=== PATIENT | male | born 1995 | race Caucasian/White ===

== ENCOUNTER → 2017-02-01 | Day surgery (SDC) | payer OTHER ==
[~2017-02-01] VITALS: Ht 185.4 cm; Wt 72.6 kg
[~2017-02-01] MED LIST: ACETAMINOPHEN 1000 MG/100 ML VIAL IV ONE; ACETAMINOPHEN 325MG/HYDROcodone 7.5MG/15ML UDC ONE; ACETAMINOPHEN 325MG/HYDROcodone 7.5MG/15ML UDC PO PRN; AMPICILLIN-SULBACTAM INJ 3 GM VIAL ONE; DO NOT ADM ANY ANTICOAGULANT DRUGS XX PRN; HYDR1SOL3 PO; LACTATED RINGER'S 1000 ML INJ 1,000 ML IV ONE; LACTATED RINGER'S 1000 ML INJ 1,000 ML IV SCH; LIDOCAINE 1%/EPINEPHrine 1:100,000 SOLN 20 ML VIAL ONE; MICROFIBRILLAR COLLAGEN HEMOSTAT 1 GM PKT ONE; NEOSTIGMINE 3 MG/3 ML SYR IV ONE; ONDANSETRON HCL 4 MG/2 ML VIAL IV PUSH ONE; OXYMETAZOLINE HCL 0.05% 15 ML NASAL SPRAY ONE; PROPOFOL 200 MG/20 ML AMP IV ONE; SODIUM CHLORIDE 0.9% INJ 100 ML ONE; VENTAER INH; [UNRECOGNIZED DRUG - CODE] PO; fentaNYL CITRATE 250 MCG/5 ML AMP ONE
[2017-02-01 11:47] VITALS: BP 132/77; PULSE 85; RESP 16; TEMP 98.4; O2SAT 99
[2017-02-01 16:55] VITALS: BP 139/75; PULSE 81; RESP 16; TEMP 97.8; O2SAT 99
--- NOTE | 2017-02-08 08:01 | MP ---
cc: ONOFRE KAUR M.D. DATE OF SURGERY: 02/01/[address] Onofre Kaur PREOPERATIVE DIAGNOSIS 1. Adenotonsillar hypertrophy. 2. Nasal airway obstruction. 3. Nasal septal deviation. 4. Hypertrophy of inferior turbinates. POSTOPERATIVE DIAGNOSIS 1. Adenotonsillar hypertrophy. 2. Nasal airway obstruction. 3. Nasal septal deviation. 4. Hypertrophy of inferior turbinates. OPERATION PERFORMED 1. Open repair nasal septal fracture. 2. Bilateral submucosal resection of inferior turbinates. 3. Adenotonsillectomy. INDICATIONS The indications are documented in the history and physical. DESCRIPTION OF OPERATION The patient was taken to OR #6 and placed in the supine position. Following induction of general anesthesia and intubation the nose was packed bilaterally with cotton pledgets saturated in 0.05% oxymetazoline. Nasal septal mucosa and the inferior turbinates were injected with a total of 10 mL of 1% Xylocaine with epinephrine 1:100,000. The patient was then prepped and draped for surgery. Nasal packing was removed and a hemitransfixion incision was made in the left nasal vestibule and the septal mucosa was elevated bilaterally as far as the junction of the bony cartilaginous septum. This revealed the quadrangular cartilage which showed evidence of very thick twisted and irregular cartilage and evidence of old septal fracture with numerous angulated cartilage fragments. A cumulative area of 2 x 2.5 cm of cartilage was removed preserving 1.5 cm dorsal and caudal cartilaginous struts. This was removed in a piecemeal fashion using a Milam elevator and Yohannes-Mckenzie forceps. When this was completed the mucosa was elevated from the bony septum and the bony septum was removed with [place]-Mckenzie forceps and [place]-Jones septal scissors. Following this the maxillary crest was removed using a 6 mm Ringling chisel. The incision was then closed using a running suture of 4-0 chromic and the mucosal layers of septum were approximated to each other with a quilting stitch of 4-0 plain gut. The inferior turbinates were then fractured out medially and stab incisions were made along their inferior surfaces. Through these incisions the submucosal soft tissue was reduced using a curet preserving the conchal bone. The incisions were then cauterized using the suction Bovie at 35 pichardo. The remnants of the inferior turbinates were then re-lateralized to the lateral nasal wall. The nose was packed with Merocel tampons coated in bacitracin ointment. The table was then turned 90 degrees and a shoulder roll and McIvor mouth gag were put in place. The tonsils were then removed using the ArthroCare Coblator technique. Numerous sites of venous bleeding at the inferior and superior poles of tonsil fossa bilaterally were cauterized with the bipolar cautery until hemostasis was complete. Next, the adenoids were removed using the suction Bovie at 35 pichardo. The stomach was aspirated of several cc's of cloudy gastric contents using a #18 Kerr sump NG tube. When this was completed the mouth gag was removed and the procedure was terminated. The patient was reversed from anesthesia and taken to Recovery in good condition. There were no complications. Blood loss was 100 mL. MD FABIO Marquez/JULIETH /11:22 AM /7:52 AM
== END | disposition home or self-care (01) ==
LOC: HSDC 10:36
PROVIDERS: ATTEND Otolaryngology
DX: J35.01 Chronic tonsillitis (principal); J35.3 Hypertrophy of tonsils with hypertrophy of adenoids; J34.89 Other specified disorders of nose and nasal sinuses; J34.2 Deviated nasal septum; J34.3 Hypertrophy of nasal turbinates
CPT/HCPCS: 00160; 00170; 21335; 42821; 88304; J0131; J0295; J2405; J2710; J3010; J7120

== ENCOUNTER 2017-02-02 01:14 | Emergency (ER) | payer OTHER ==
[2017-02-02 01:17] VITALS: BP 104/67; PULSE 94; RESP 15; TEMP 97.7; O2SAT 97
[2017-02-02] MEDS ORDERED: SODIUM CHLOR 0.9% 1000 ML INJ 1,000 ML IV SCH ×2 (01:40→02:45)
[2017-02-02] MEDS ORDERED: ONDANSETRON HCL 4 MG/2 ML VIAL IVP ONE (01:45)
[2017-02-02] MEDS ORDERED: PANTOPRAZOLE SODIUM 40 MG VIAL IVP ONE (01:45)
--- NOTE | 2017-02-02 01:50 | PD ---
HPI Chief Complaint: GI Complaint Time Seen by Provider: 01:40 Travel History International Travel<30 days: No Contact w/Intl Traveler<30days: No Traveled to known affect area: No History of Present Illness HPI 22-year-old male complains of lightheadedness and dizziness and syncope. Patient status post open septal reconstruction, bilateral turbinectomy, turbinate resection, tonsillectomy and adenoidectomy this afternoon by Dr. Kaur. Patient was discharged home. Patient has intermittent vomiting after discharge and vomited blood this evening. Patient returned back to the emergency room. Patient had a syncopal episode in the emergency room. Patient complains of generalized malaise and weakness. Patient denies any chest pain or shortness of breath. Patient denies abdominal pain. PFSH Past Medical History Anxiety: Yes Cancer: No Cardiovascular Problems: No Diabetes: No Diminished Hearing: No Endocrine: No Genitourinary: No Hepatitis: No Hiatal Hernia: No Immune Disorder: No Musculoskeletal: No Neurologic: No Psychiatric: No Reproductive: No Respiratory: No Thyroid Disease: No Past Surgical History AICD: No Joint Replacement: No Pacemaker: No Social History Alcohol Use: Yes (socially) Tobacco Use: Yes (vapor) Substance Use: Yes (marijuana/weekly) Allergies-Medications (Allergen,Severity, Reaction): Coded Allergies: No Known Allergies (Verified , 02/02/17) Reported Meds & Prescriptions Reported Meds & Active Scripts Active No Active Prescriptions or Reported Medications Review of Systems General / Constitutional: No: Fever Eyes: No: Visual changes HENT: No: Headaches Cardiovascular: No: Chest Pain or Discomfort Respiratory: No: Shortness of Breath Gastrointestinal: No: Abdominal Pain Genitourinary: No: Dysuria Musculoskeletal: No: Pain Skin: No Rash Neurologic: No: Weakness Psychiatric: No: Depression Endocrine: No: Polydipsia Hematologic/Lymphatic: No: Easy Bruising Physical Exam Narrative GENERAL: Well-nourished, well-developed patient. SKIN: Warm and dry. HEAD: Normocephalic. EYES: No scleral icterus. No injection or drainage. NECK: Supple, trachea midline. No JVD or lymphadenopathy. Patient has dressing to the nose. No active bleeding. Examination of the throat shows some fresh blood however no active bleeding. CARDIOVASCULAR: Regular rate and rhythm without murmurs, gallops, or rubs. RESPIRATORY: Breath sounds equal bilaterally. No accessory muscle use. GASTROINTESTINAL: Abdomen soft, non-tender, nondistended. MUSCULOSKELETAL: No cyanosis, or edema. BACK: Nontender without obvious deformity. No CVA tenderness. neurologic exam: Patient's lethargic however answer questions appropriately. No obvious focal neurological deficit. Data Data Last Documented VS Vital Signs Date Time Temp Pulse Resp B/P Pulse Ox O2 Delivery O2 Flow Rate FiO2 02/02/17 01:17 97.7 94 15 104/67 97 Room Air Orders Basic Metabolic Panel (Bmp) (02/02/17 01:40) Complete Blood Count With Diff (02/02/17 01:40) Iv Access Insert/Monitor (02/02/17 01:40) Ecg Monitoring (02/02/17 01:40) Oximetry (02/02/17 01:40) Ondansetron Inj (Zofran Inj) (02/02/17 01:45) Pantoprazole Inj (Protonix Inj) (02/02/17 01:45) Sodium Chlor 0.9% 1000 Ml Inj (Ns 1000 M (02/02/17 01:40) MDM Medical Decision Making Medical Screen Exam Complete: Yes Emergency Medical Condition: Yes Differential Diagnosis Differential diagnosis including vasovagal reaction, electrolyte abnormality, dehydration, anemia. Narrative Course 22-year-old male status post nose surgery, tonsillectomy and adenoidectomy, generalized malaise and weakness or syncope. Normal saline solution 1 L IV bolus. Protonix 40 mg IV. Zofran 4 mg IV. Scripts No Active Prescriptions or Reported Meds Leland Elias MD Feb 02, 2017 01:49
[2017-02-02 01:55] VITALS: O2SAT 97
[2017-02-02 02:22] LABS: AUTOMATED NEUTROPHIL # 21.8 TH/MM3 (1.8-7.7); HEMO FLAGS DIFF FINAL; LYMPH % 5.5 % (9.0-44.0); LYMPHOCYTE # 1.4 TH/MM3 (1.0-4.8); MEAN CELL VOLUME 92.7 FL (80.0-100.0); MEAN CORPUSCULAR HEMOGLOBIN 32.1 PG (27.0-34.0); MEAN CORPUSCULAR HGB CONC 34.6 % (32.0-36.0); MONO % 7.1 % (0.0-8.0); NEUT % 87.4 % (16.0-70.0); PLATELET COUNT 332 TH/MM3 (150-450); RED CELL DISTRIBUTION WIDTH 13.2 % (11.6-17.2); WHITE BLOOD COUNT 24.9 TH/MM3 (4.0-11.0)
[2017-02-02 02:26] LABS: BICARBONATE 28.8 MEQ/L (21.0-32.0); POTASSIUM 4.1 MEQ/L (3.5-5.1)
[2017-02-02] MEDS ORDERED: MORPHINE SULFATE 4 MG/ML INJ IV PUSH ONE (02:45)
[2017-02-02] MEDS ORDERED: [UNRECOGNIZED DRUG - CODE] PO (03:02)
[2017-02-02] MEDS ORDERED: HYDR1SOL3 PO (03:02)
[2017-02-02 07:42] VITALS: BP 151/81; PULSE 88; RESP 18; O2SAT 100
--- NOTE | 2017-02-02 08:29 | PD ---
Physical Exam Date Seen by Provider: Feb 02, 2017 Time Seen by Provider: 08:20 Narrative 22-year-old male came to the emergency room brought by his mother status post extensive ENT surgery 24 hours ago and vomiting blood. As per the mother he vomited 2-3 times large quantity of blood. He was dizzy. She got really concerned and brought him to the emergency room. She was seen by the previous ER physician. Blood test was ordered and did not show any anemia that required transfusion. Patient did not have any more vomiting episode. Plan was to have the ENT surgeon Dr. Kaur come and see the patient. Dr. Elias who saw the patient earlier spoke with Dr. Martines and was under the impression that Dr. Kaur would come to see the patient in the morning. Patient received 1 L of IV fluid bolus and pain medication. The mother said that when he went up to go to the bathroom he got a little dizzy but did not pass out. Patient did have a syncopal episode initially when he came to the emergency room and getting triage. Currently he is awake and talking and answering questions appropriately. Vital signs are relatively stable. I spoke with Dr. Martines who said that he would let Dr. Kaur know since he was driving to the office and will see him there. And I should hear have back from the office soon. The morale officer did call back to let me know that as per Dr. Kaur patient could go home and he would like to see the patient in the office. I let the patient and his mother know about this plan. They're comfortable going home. Patient currently is getting a second liter of IV fluid bolus. When that finishes he will be discharged and I have asked them to go straight to Dr. Kaur's office. Data Data Last Documented VS Orders Basic Metabolic Panel (Bmp) (02/02/17 01:40) Complete Blood Count With Diff (02/02/17 01:40) Iv Access Insert/Monitor (02/02/17 01:40) Ecg Monitoring (02/02/17 01:40) Oximetry (02/02/17 01:40) Ondansetron Inj (Zofran Inj) (02/02/17 01:45) Pantoprazole Inj (Protonix Inj) (02/02/17 01:45) Sodium Chlor 0.9% 1000 Ml Inj (Ns 1000 M (02/02/17 01:40) Morphine Inj (Morphine Inj) (02/02/17 02:45) Sodium Chlor 0.9% 1000 Ml Inj (Ns 1000 M (02/02/17 02:45) Labs MDM Supervised Visit with WILLIAM: No Physician Communication Physician Communication Dr. Martines Diagnosis Primary Impression: History of ear, nose, and throat (ENT) surgery Additional Impressions: Syncope Qualified Code: R55 - Syncope, unspecified syncope type Hematemesis Qualified Code: K92.0 - Hematemesis with nausea Referrals: Vern Kaur MD Additional Instruction: Please go to Dr. Kaur's [place] office once or discharge. He is expecting her and will see her. Please return to the ER if the condition worsens or any other new concerns. Once here discharged please take it easy at home and drink lots of fluid to keep himself hydrated per Med/Other Pt SpecificInfo: No Change to Meds Disposition: 01 DISCHARGE HOME Condition: Stable Christie Colby MD Feb 02, 2017 08:29 Mean Corpuscular Hemoglobin 34.6 % Concent Red Cell Distribution Width 13.2 % Platelet Count 332 TH/MM3 Mean Platelet Volume 8.1 FL Neutrophils (%) (Auto) 87.4 % Lymphocytes (%) (Auto) 5.5 % Monocytes (%) (Auto) 7.1 % Eosinophils (%) (Auto) 0.0 % Basophils (%) (Auto) 0.0 % Neutrophils # (Auto) 21.8 TH/MM3 Lymphocytes # (Auto) 1.4 TH/MM3 Monocytes # (Auto) 1.8 TH/MM3 Eosinophils # (Auto) 0.0 TH/MM3 Basophils # (Auto) 0.0 TH/MM3 CBC Comment DIFF FINAL Differential Comment Sodium Level 137 MEQ/L Potassium Level 4.1 MEQ/L Chloride Level 100 MEQ/L Carbon Dioxide Level 28.8 MEQ/L Anion Gap 8 MEQ/L Blood Urea Nitrogen 20 MG/DL Creatinine 1.03 MG/DL Estimat Glomerular Filtration 89 ML/MIN Rate Random Glucose 180 MG/DL Calcium Level 8.6 MG/DL MDM Supervised Visit with WILLIAM: No Physician Communication Physician Communication Dr. Martines Diagnosis Primary Impression: History of ear, nose, and throat (ENT) surgery Additional Impressions: Syncope Qualified Code: R55 - Syncope, unspecified syncope type Hematemesis Qualified Code: K92.0 - Hematemesis with nausea Referrals: Vern Kaur MD Additional Instruction: Please go to Dr. Kaur's [place] office once or discharge. He is expecting her and will see her. Please return to the ER if the condition worsens or any other new concerns. Once here discharged please take it easy at home and drink lots of fluid to keep himself hydrated per Med/Other Pt SpecificInfo: No Change to Meds Disposition: 01 DISCHARGE HOME Condition: Stable Christie Colby MD Feb 02, 2017 08:29
[2017-02-02 08:33] VITALS: BP 136/70; PULSE 88; RESP 18; O2SAT 98
[2017-02-02 09:21] VITALS: BP 131/72; PULSE 85; RESP 18; O2SAT 98
== END 2017-02-02 09:35 | disposition home or self-care (01) ==
LOC: NEPD 01:14 → NEPC 09:35
DX: R55 Syncope and collapse (principal); K92.0 Hematemesis
CPT/HCPCS: 80048; 85025; 96361; 96374; 96375; 99284; C9113; J2270; J2405; J7030